=== PATIENT | male | born 2000 | race Caucasian/White ===

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

== ENCOUNTER → 2023-02-20 | Outpatient (CLI) | payer BC ==
--- NOTE | 2023-02-20 13:04 | US ---
EXAMINATION TYPE: US scrotum with doppler. Grayscale and color Doppler Duplex imaging performed of t adrianne scrotum. 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 There is no evidence of testicular torsion. Presence of hydroceles: No Presence of varicoceles: No In area of pt's palpable upper pole right testicle- appears to be pt's normal epi head IMPRESSION: No distinct abnormality seen
== END | disposition home or self-care (01) ==
LOC: RADUSWWP 12:10
PROVIDERS: ATTEND Family Medicine
DX: N50.89 Other specified disorders of the male genital organs (principal)
CPT/HCPCS: 76870; 93975

== ENCOUNTER 2023-07-10 10:20 | Day surgery (SDC) | payer BC ==
[2023-07-07 16:34] VITALS: BMI 25.0
[2023-07-10] MEDS: LACTATED RINGERS 1,000 ML IV ONE (10:27)
[2023-07-10] MEDS ORDERED: LACTATED RINGERS 1,000 ML IV SCH (10:31)
[2023-07-10] MEDS ORDERED: LIDOCAINE 1% INJ 10MG/ML (20 ML MDV) ONE (10:49)
[2023-07-10] MEDS ORDERED: PROPOFOL 10 MG/ML 20 ML VIAL IV ONE (10:49)
[2023-07-10 10:59] VITALS: TEMP 98
--- NOTE | 2023-07-10 11:07 | P.PCN ---
Date of Procedure: 07/10/23 Procedure(s) Performed: BRIEF HISTORY: Patient is a 53-year-old white male scheduled for an elective colonoscopy as a part of evaluation of intermittent rectal bleeding. PROCEDURE PERFORMED: Colonoscopy. PREOPERATIVE DIAGNOSIS: Rectal bleeding IV sedation per Anesthesia. PROCEDURE: After informed consent was obtained, the patient, was brought into the endoscopy unit. IV sedation was administered by Anesthesia under continuous monitoring. Digital rectal examination was normal. Initially the Olympus CF-160 flexible video colonoscope was then inserted in the rectum, gradually advanced into the cecum without any difficulty. Careful examination was performed as the scope was gradually being withdrawn. Ileocecal valve and the appendiceal orifice were visualized and appeared normal. Prep was excellent. Mucosa of the cecum, ascending colon, transverse colon, descending colon, sigmoid colon, and rectum appeared normal. Retroflexion was performed in the rectum and no lesions were seen. The patient tolerated the procedure well. IMPRESSION: Normal-appearing colon from rectum to cecum No evidence of colorectal neoplasia. Small internal hemorrhoids. RECOMMENDATIONS: Findings of this examination were discussed with the patient as well as his family. He was advised to be a high-fiber diet and take fiber supplements as needed and avoid straining and constipation
[2023-07-10 11:43] VITALS: BP 122/75; PULSE 86
[2023-07-10 11:44] VITALS: RESP 18
== END 2023-07-10 11:41 | disposition home or self-care (01) ==
LOC: ORWHC2ENDO 10:20
PROVIDERS: ATTEND Internal Medicine Gastroenterology
DX: K62.5 Hemorrhage of anus and rectum (principal); K64.8 Other hemorrhoids; Z79.899 Other long term (current) drug therapy
CPT/HCPCS: 45378; J2001; J2704